=== PATIENT | female | born 1990 | race Caucasian/White ===

== ENCOUNTER 2019-05-10 07:56 | Emergency (ER) | payer MEDICAID ==
[~2019-05-10] VITALS: Ht 149.9 cm; Wt 64.4 kg
[2019-05-10 08:00] VITALS: Ht 149.9 cm; Wt 64.4 kg
[2019-05-10 08:51] LABS: BASOPHIL % 0.6 % (0-2); PLATELET COUNT 222 x10^3mcL (130-400); RED CELL DISTRIBUTION WIDTH 12.6 % (11.5-14.5)
[2019-05-10 09:10] LABS: CALCIUM 8.7 mg/dL (8.5-10.1); CHLORIDE SERUM 107 mmol/L (98-107); CREATININE SERUM 0.7 mg/dL (0.6-1.0); GFR1 > 60 mL/min; GLUCOSE SERUM 97 mg/dL (74-106); SODIUM SERUM 141 mmol/L (136-145)
[2019-05-10 09:14] LABS: ALBUMIN 3.9 g/dL (3.4-5.0); ALKALINE PHOSPHATASE 83 U/L (46-116); ALT/SGPT 25 U/L (14-59); AST/SGOT 15 U/L (15-37); BILIRUBIN TOTAL 0.5 mg/dL (0.20-1.00); LIPASE 129 IU/L (73-393); TOTAL PROTEIN, SERUM 7.4 g/dL (6.4-8.2)
[2019-05-10 09:54] VITALS: BP 117/72
== END 2019-05-10 09:58 | disposition home or self-care (01) ==
LOC: ED 07:56
PROVIDERS: Emergency Medicine
DX: K52.9 Noninfective gastroenteritis and colitis, unspecified (principal)
CPT/HCPCS: J1885; J2405; J7030

== ENCOUNTER 2019-10-01 11:38 | Emergency (ER) | payer MEDICAID ==
[~2019-10-01] VITALS: Ht 149.9 cm; Wt 66.2 kg
[2019-10-01 12:24] VITALS: BP 127/82; Ht 149.9 cm; Wt 66.2 kg
== END 2019-10-01 14:30 | disposition left against medical advice (07) ==
LOC: ED 11:38
DX: Z53.21 Procedure and treatment not carried out due to patient leaving prior to being seen by health care provider (principal)

== ENCOUNTER 2019-10-25 09:27 | Emergency (ER) | payer MEDICAID ==
[~2019-10-25] VITALS: Ht 149.9 cm; Wt 64.9 kg
[2019-10-25 09:42] VITALS: Ht 149.9 cm; Wt 64.9 kg
[2019-10-25 11:30] VITALS: BP 110/63
== END 2019-10-25 11:30 | disposition home or self-care (01) ==
LOC: ED 09:27
DX: F41.9 Anxiety disorder, unspecified (principal); R10.9 Unspecified abdominal pain